=== PATIENT | male | born 1975 | race Caucasian/White ===

== ENCOUNTER 2019-09-24 09:59 | Inpatient (IN) | payer BC, OTHER ==
[2019-09-24] MEDS ORDERED: Morphine 4 MG/ML VIAL ONE ×2 (11:06→15:14)
[2019-09-24] MEDS ORDERED: Ondansetron PF 4 MG/2 ML Vial ONE (11:07)
[2019-09-24] MEDS ORDERED: Iopamidol-370 76% 500 ML 1 ML ONE (11:42)
[2019-09-24 13:54] LABS: ALT (SGPT) 31 U/L (8-55); AST (SGOT) 20 U/L (5-34); Alkaline Phosphatase 106 U/L (40-110); Anion Gap 14 mmol/L (10-20); BUN (Urea Nitrogen) 9 mg/dL (8.9-20.6); Bilirubin, Total 1.8 mg/dL (0.2-1.2); Calc. Creatinine Clearance 0 mL/min (70-130); Calcium 9.5 mg/dL (7.8-10.44); Carbon Dioxide 23 mmol/L (22-29); Chloride 102 mmol/L (98-107); Estimated GFR-MDRD Greater than 90; Glucose 71 mg/dL (70-105); Lipase 58 U/L (8-78); Sodium 136 mmol/L (136-145)
[2019-09-24] MEDS ORDERED: Azithromycin 500 MG in Sodium Chloride 0.9% 250 ML 250 ML IVPB SCH (15:00)
[2019-09-24 15:11] LABS: #Eosinphils 0.1 thou/uL (0.0-0.7); #Lymphocytes 1.3 thou/uL (1.20-3.40); #Monocytes 0.8 thou/uL (0.11-0.59); %Basophils 0.2 % (0.0-1.0); %Eosinophils 0.8 % (0.0-10.0); %Lymphocytes 10.4 % (21.0-51.0); %Monocytes 6.7 % (0.0-10.0); %Neutrophils 81.9 % (42.0-75.0); Hemoglobin 15.2 g/dL (14.0-18.0); Mean Corpuscular HGB CONC 35.7 g/dL (32.0-36.0); Mean Corpuscular Hemoglobin 35.9 pg (27.0-31.0); Platelet Count 163 thou/uL (130-400); RBC Distribution Width 12.4 % (11.5-14.5); Red Blood Cell (RBC) Count 4.22 mill/uL (4.70-6.10); White Blood Cell (WBC) Count 12.2 thou/uL (4.8-10.8)
--- NOTE | 2019-09-24 15:11 | CT ---
CT ABDOMEN AND PELVIS WITH IV CONTRAST: Date: 09/24/19 INDICATION: History of generalized abdominal pain with vomiting and history of pancreatitis. COMPARISON: None. FINDINGS: There is a rounded area of ground-glass nodular opacity seen within the posterolateral right lower lo be, image 9 of series 2. This nodular density measures 2.0 cm in size. There is fatty infiltration of the liver. The gallbladder is surgically absent. The pancreas demonstr ates scattered calcifications with main pancreatic ductal dilatation. There is inflammatory stranding surrounding the pancreas, particularly the proximal body and head. There is wall thickening involvin g the duodenum which is likely reactive. No drainable fluid collection is evident. Adrenal glands, sp jacquie, and kidneys are normal appearing. There are mild vascular calcifications involving the abdomina l aorta. Mild amount of retained stool is seen within the colon. There is mild wall thickening involving the b ladder. The small bowel is normal appearing. There is scattered degenerative and osteoarthritic barbour e. IMPRESSION: 1. Findings of acute on chronic pancreatitis. No drainable fluid collection or gross complication is evident. 2. Rounded opacity within the right lower lobe may reflect an area of focal pneumonia. Entities such as adenocarcinoma or inflammatory pneumonitis cannot be entirely excluded. Short-term follow-up in 6 -8 weeks is recommended to document resolution or stability. 3. Fatty liver. 4. Cholecystectomy. 5. Mild amount of retained stool within the colon. 6. Mild wall thickening of the bladder may be related to underdistention. Component of cystitis not excluded. Findings called to Dr. Elder at 1313 hours on 09/24/19. CODE CR. CODE LN. POS: OFF
[2019-09-24 15:12] LABS: Prothrombin Time 14.9 SEC (12.0-14.7)
[2019-09-24 15:13] LABS: INR-International Normal Ratio 1.2
[2019-09-24] MEDS ORDERED: cefTRIAXone\\ROCEPHIN 1 GM VIAL ONE (15:14)
--- NOTE | 2019-09-24 15:45 | RAD ---
CHEST ONE VIEW: 09/24/19 INDICATION: Vomiting with abdominal pain. COMPARISON: None. FINDINGS: The lungs are clear. Heart size is normal. There is mild thoracic scoliosis. There is mild tortuosity of the aorta. No pleural effusion or pneumothorax evident. No acute osseous abnormalities evident. IMPRESSION: No acute cardiopulmonary abnormality. POS: OFF
[2019-09-24] MEDS ORDERED: Fentanyl 100 MCG/2 ML VIAL SLOW IVP SCH (16:30)
[2019-09-24] MEDS ORDERED: Acetaminophen 325 MG TAB PO PRN (16:37)
[2019-09-24] MEDS ORDERED: Senokot S 8.6-50 MG TAB PO PRN (16:37)
[2019-09-24] MEDS ORDERED: Fentanyl 100 MCG/2 ML VIAL SLOW IVP PRN (16:44)
[2019-09-24] MEDS ORDERED: Sodium Chloride 0.9% 1,000 ML IV SCH (16:45)
[2019-09-24 17:46] LABS: Iron 28 ug/dL (65-175); Iron Binding Capacity, Total 233 mcg/dL (261-462)
--- NOTE | 2019-09-24 18:20 | HP ---
PRIMARY CARE PHYSICIAN: None. This is a [facility]. CHIEF COMPLAINT: Abdominal pain. HISTORY OF PRESENT ILLNESS: He reported to the emergency room today for abdominal pain, has been onset 2 weeks ago with worsening pain as well as nausea, vomiting, diarrhea, and bilateral flank pain. The patient reports some coffee-ground like vomit daily for about 2 weeks. Reports that diarrhea was initially red and then turned black after he took some Pepto-Bismol. He reports a history of pancreatitis, last episode 10 years ago. Reports that he saw Dr. Ledesma at that time. He also reports a history of increased stress and anxiety. Reports several episodes of chest pain, which he believes is likely a panic related. Reports a surgical history of a cholecystectomy, esophagus stretching, endoscopy, and an appendectomy. The patient had an abdomen and pelvis CT with findings; 1. Acute on chronic pancreatitis, no drainable fluid collection or gross complication. 2. Rounded opacity within the right lower lobe, which may reflect an area of focal pneumonia. Short-term followup in 6 to 8 weeks is recommended to document resolution. 3. Fatty liver. 4. Cholecystectomy. 5. Mild amount of retained stools in the colon. 6. Mild wall thickening of the bladder, component of cystitis is not excluded. LABORATORY DATA: Pertinent for hypokalemia with potassium of 3.0, total bilirubin 1.8. PT 14.9, INR 1.2. White blood cell count 12.2, red blood cell count 4.22, hemoglobin 15.2, hematocrit 42.5, and platelet count is 163. The patient was given a dose of Rocephin and azithromycin as well as morphine. The patient reports that he feels mildly improved with the pain, and the patient to be admitted to the medical unit for further management and GI consult. PAST MEDICAL HISTORY: Pertinent for pancreatitis and esophageal stricture. PAST SURGICAL HISTORY: Appendectomy, cholecystectomy, has had an EGD in the past with expansion of the stricture in the esophagus. FAMILY HISTORY: Pertinent for hypertension. SOCIAL HISTORY: Denies any alcohol or drug use. Denies smoking history. REVIEW OF SYSTEMS: The patient reports chills. Reports abdominal pain. Reports nausea, vomiting, and diarrhea. Reports that he noticed some coffee-ground type emesis intermittently. Also reports some intermittent melena. Reports being under more stress than normal. Denies any fever. Denies any shortness of breath, chest pain. All systems reviewed and are negative unless mentioned above or in HPI. PHYSICAL EXAMINATION: VITAL SIGNS: Blood pressure 173/95, pulse is 77, respirations are 16, temperature is 99.3, and O2 sats are 100% on room air. CONSTITUTIONAL: The patient appears in mild pain distress. He is alert and oriented to person, place, and time. HEENT: Head is atraumatic and normocephalic. Eyes, pupils are equally round and reactive to light. Extraocular muscles are intact. Eyelids are normal to inspection. ENT, mouth exam is normal. Mucous membranes are moist. NECK: Normal range of motion. Trachea is midline. RESPIRATORY/CHEST: Breath sounds are clear. Chest expansion is equal. CARDIOVASCULAR: Regular heart rate and rhythm. Heart sounds are normal. ABDOMEN: Tender to upper abdomen, epigastric, left and right upper quadrants. Bowel sounds are hyperactive. No distention is noted. BACK: Normal range of motion. No tenderness. EXTREMITIES: Upper extremity, normal range of motion. Sensation intact. Motor strength is normal. Radial pulses are normal. Lower extremity, normal inspection, normal range of motion. Sensation is intact. Pedal pulses are normal. No edema is noted. NEURO: The patient is oriented to person, place, and time. Speech is normal. SKIN: Visualized is warm, dry, and normal in color. PSYCH: The patient appears somewhat anxious. DIAGNOSTIC DATA: EKG in the emergency room shows beats per minute 77, normal sinus rhythm. Conduction is normal. PLAN AND ASSESSMENT: 1. Acute on chronic pancreatitis. Keep the patient on clear liquid diet. Dr. Christie for consultation. Pain medication, Zofran as needed for nausea. Reglan q.8. 2. History of melena and hematemesis. We have ordered an occult blood screen. Repeat CBC in a.m. Current hemoglobin and hematocrit are within normal limits. We have added Protonix q.12 hours. Iron studies have been ordered. 3. Hypokalemia. Add normal saline with 40 mEq of potassium at 100 mL per hour. We will recheck in the morning. 4. Possible pneumonia on CT scan. Azithromycin or Rocephin was started in the emergency room, we will continue this. The patient was told of the need for a followup his CT scan in the next 6 to 8 weeks. The patient reports he does not have a PCP. He was strongly encouraged to obtain one for followup after hospitalization and also for followup for chest CT. 5. Deep venous thrombosis prophylaxis with SCDs. Gastrointestinal prophylaxis with Protonix. 6. Case discussed with Dr. Villanueva, who agrees with plan. 7. Hospital course is dependent on clinical findings. Job ID: [id number]
[2019-09-24 18:27] LABS: Troponin I Less than 0.010 ng/mL (< 0.028)
[2019-09-24] MEDS ORDERED: Lorazepam 2 MG/ML VIAL SLOW IVP SCH (20:08)
[2019-09-24] MEDS: Morphine 4 MG/ML VIAL SLOW IVP PRN (20:35)
[2019-09-24] MEDS: Pantoprazole 40 MG VIAL IVP SCH (20:42)
[2019-09-24] MEDS: NS 0.9% w/ 40 MEQ KCL 1,000 ML IV SCH (20:45)
[2019-09-24] MEDS ORDERED: Famotidine/PF 20 mg/2ml Vial SLOW IVP SCH (21:00)
[2019-09-24 21:07] LABS: Lactic Acid 1.6 mmol/L (0.5-2.2)
[2019-09-24] MEDS: Metoclopramide HCl 10 MG/2 ML VIAL IVP SCH (22:44)
[2019-09-25] MEDS: Morphine 4 MG/ML VIAL SLOW IVP PRN ×5 (00:27→20:51)
[2019-09-25 02:43] VITALS: BMI 24.5
[2019-09-25 04:49] LABS: Bacteria/HPF None Seen HPF (None Seen); Bilirubin Negative (Negative); Blood, Urine Negative (Negative); Clarity Clear (Clear); Glucose, Urine (Dipstick) Normal (Negative); Leukocyte Negative Leu/uL (Negative); Nitrite Negative (Negative); Protein, Urine (Dipstick) Negative (Neg-Trace); RBC/HPF 0-3 HPF (0-3); Squamous Epithelial None Seen HPF (0-3); Urobilinogen Normal mg/dL (Less than 2); WBC/HPF 0-3 HPF (0-3)
[2019-09-25 04:59] LABS: Amphetamine Not Detected (NotDetected); Barbiturates Screen Not Detected (NotDetected); Benzodiazepine Screen Not Detected (NotDetected); Cocaine Metabolite Screen Not Detected (NotDetected); Medtox Control Line Valid? VALID (VALID); Medtox Reader # READER 4; Methadone Not Detected (NotDetected); Methamphetamine Not Detected (NotDetected); Opiate Screen Detected (NotDetected); Oxycodone Screen Not Detected (NotDetected); Phencyclidine (PCP) Not Detected (NotDetected); THC/Cannabinoid Screen Not Detected (NotDetected); Tricyclic Screen Not Detected (NotDetected)
[2019-09-25 05:00] LABS: Urine Culture Reflex No No
[2019-09-25] MEDS: Metoclopramide HCl 10 MG/2 ML VIAL IVP SCH ×3 (06:07→23:03)
[2019-09-25 06:15] LABS: Hemoglobin 14.1 g/dL (14.0-18.0); Mean Corpuscular HGB CONC 33.1 g/dL (32.0-36.0); Mean Corpuscular Hemoglobin 35.7 pg (27.0-31.0); Mean Platelet Volume 8.9 fL (7.4-10.4); Platelet Count 137 thou/uL (130-400); RBC Distribution Width 12.4 % (11.5-14.5); Red Blood Cell (RBC) Count 3.95 mill/uL (4.70-6.10); White Blood Cell (WBC) Count 10.3 thou/uL (4.8-10.8)
[2019-09-25 06:30] LABS: ALT (SGPT) 42 U/L (8-55); AST (SGOT) 67 U/L (5-34); Albumin 3.2 g/dL (3.5-5.0); Alkaline Phosphatase 142 U/L (40-110); Anion Gap 16 mmol/L (10-20); BUN (Urea Nitrogen) 9 mg/dL (8.9-20.6); Bilirubin, Total 1.2 mg/dL (0.2-1.2); Calc. Creatinine Clearance 138 mL/min (70-130); Calcium 8.3 mg/dL (7.8-10.44); Carbon Dioxide 16 mmol/L (22-29); Chloride 108 mmol/L (98-107); Estimated GFR-MDRD Greater than 90; Globulin 2.9 g/dL (2.4-3.5); Potassium 3.6 mmol/L (3.5-5.1); Protein, Total 6.1 g/dL (6.0-8.3); Sodium 136 mmol/L (136-145)
[2019-09-25 06:38] LABS: #Eosinphils 0.1 thou/uL (0.0-0.7); #Lymphocytes 1.2 thou/uL (1.20-3.40); #Monocytes 0.9 thou/uL (0.11-0.59); %Basophils 0.3 % (0.0-1.0); %Eosinophils 1.2 % (0.0-10.0); %Lymphocytes 11.9 % (21.0-51.0); %Monocytes 8.6 % (0.0-10.0); %Neutrophils 78.1 % (42.0-75.0); MDiff Complete? YES; Macrocytosis SLIGHT = 6-15 cells (100X) (0-5/hpf); Platelet Morphology Comment Appears Adequate
[2019-09-25 06:43] LABS: Glucose 52 mg/dL (70-105)
[2019-09-25] MEDS: Pantoprazole 40 MG VIAL IVP SCH ×2 (09:32→20:52)
[2019-09-25] MEDS: NS 0.9% w/ 40 MEQ KCL 1,000 ML IV SCH ×2 (09:35→13:21)
[2019-09-25] MEDS ORDERED: FLU VACC QS2019-20(6MOS UP)/PF 60 MCG/0.5 ML SYRINGE IM ONE (09:45)
--- NOTE | 2019-09-25 12:27 | CON ---
DATE OF CONSULTATION: 09/25/2019 CHIEF COMPLAINT: Abdominal pain. HISTORY OF PRESENT ILLNESS: Mr. Smith is a 44-year-old man, who presented to the emergency room with abdominal pain. He started with a burning to cramping epigastric pain about 2 weeks ago. He gradually developed nausea and vomiting and threw up once or twice a day since then. He would intermittently vomit red blood and then coffee-ground appearing emesis. He also has had loose stools with up to 5 stools per day, at times it has been bloody as well. He has had no chest pain, but has had some shortness of breath with exertion. He is also just felt generally fatigued. He has had progressive solid food dysphagia around once per week and usually can drink water and push the bolus down. He underwent EGD with dilation of esophageal stricture back in 2008. He has not been taking a proton pump inhibitor. He has not been on any medications at baseline, but over the last few days he started taking some ibuprofen for the abdominal pain around 3 tablets at a time a few times per day. He has a history of chronic pancreatitis. However, the pain that he has now feels different than the prior pancreatitis pain. The source for the pancreatitis was not identified, but was potentially thought to be related to sphincter of Oddi dysfunction and he was treated with stent to the pancreatic duct and possibly a sphincterotomy or balloon to the sphincter. He did take Pepto-Bismol and had some black stools after that. PAST MEDICAL HISTORY: Recurrent pancreatitis with his last episode having been in 2008. He had had a pancreatic stent in the past prior to that. PAST SURGICAL HISTORY: 1. Cholecystectomy. 2. Appendectomy. FAMILY HISTORY: Negative for GI malignancy. SOCIAL HISTORY: He drinks a 6-pack of beer a couple times per week. He smokes a couple times per year. No drugs. ALLERGIES: NO KNOWN DRUG ALLERGIES. MEDICATIONS: Outpatient medications are none other than the medicines he was taken over the last few days as stated in the history of present illness. Currently in the hospital, he is on; 1. Azithromycin. 2. Ceftriaxone. 3. Morphine. REVIEW OF SYSTEMS: Negative x10 systems reviewed except as stated in history of present illness. PHYSICAL EXAMINATION: VITAL SIGNS: Temperature 98.0, pulse 75, blood pressure 157/99. GENERAL: He is in no acute distress. Alert and oriented x3. HEENT: Eyes have no scleral icterus. Oropharynx is clear without lesions. No cervical or supraclavicular lymphadenopathy. LUNGS: Clear to auscultation bilaterally. HEART: Regular rate and rhythm without murmur. ABDOMEN: Soft. He is tender in the epigastric region without guarding. Bowel sounds are present. EXTREMITIES: No lower extremity edema. NEUROLOGIC: Cranial nerves are grossly intact. LABORATORY DATA: White blood cell count is 10.3, down from 12.2 yesterday; hemoglobin is 14.1; and platelets 137. INR 1.2. Creatinine 0.68. Iron 28, TIBC 233, and ferritin 619. Bilirubin 1.2, AST 67, ALT 42, alkaline phosphatase 142, albumin 3.2, and lipase 58. He had a CT scan of the abdomen and pelvis, that did show calcifications within the pancreas with dilation of the main pancreatic duct. There are inflammatory changes surrounding the pancreas. There is reactive wall thickening of the duodenum. Retained stool is seen in the colon with thickening of the bladder wall. Fatty liver was seen. IMPRESSION: 1. Acute flare of chronic pancreatitis. He currently admits to drinking a couple of 6 packs per week. His parents are in the room. We will question them further on this. He does have changes of chronic pancreatitis noted as well with calcifications in the pancreas. I am concerned that alcohol could be playing a little bit more of a significant role here. 2. Esophageal dysphagia with a history of esophageal stricture, last dilated in 2008. 3. Hematemesis and change in bowel habits with possible blood in the stool as well. I will plan for esophagogastroduodenoscopy today to rule out peptic ulcer. This will also be to evaluate the area of thickening in the duodenum, and if his esophagus is not too inflamed, hopefully we can dilate the esophageal stricture at the same time. RECOMMENDATIONS: 1. Complete alcohol abstinence. 2. EGD today. 3. IV fluids. 4. We will advance his diet if he tolerates. 5. He is on antibiotics for findings on imaging with a question of a focal pneumonia in the right lower lobe of the lung with rounded opacity in that area. Job ID: [id number]
[2019-09-25] MEDS ORDERED: Fentanyl 100 MCG/2 ML VIAL ONE (12:42)
[2019-09-25] MEDS ORDERED: Ketorolac Tromethamine 30 MG/ML VIAL IVP PRN (13:17)
[2019-09-25] MEDS ORDERED: Promethazine HCl 25 MG/ML VIAL SLOW IVP PRN (13:17)
[2019-09-25] MEDS ORDERED: Ondansetron HCl/PF 4 MG/2 ML Vial IVP PRN (13:17)
[2019-09-25] MEDS ORDERED: Promethazine HCl 25 MG/ML VIAL IM PRN (13:17)
[2019-09-25] MEDS ORDERED: Labetalol HCl 100 MG/20 ML VIAL SLOW IVP PRN (13:32)
[2019-09-25] MEDS ORDERED: Labetalol HCl 100 MG/20 ML VIAL ONE (13:33)
[2019-09-25] MEDS ORDERED: hydrALAZINE 20 MG/ML VIAL SLOW IVP SCH (13:45)
[2019-09-25] MEDS ORDERED: hydrALAZINE 20 MG/ML VIAL ONE (13:51)
[2019-09-25] MEDS ORDERED: cefTRIAXone\\ROCEPHIN 1 GM in Sodium Chloride 0.9% 100 ML IVPB SCH (14:00)
[2019-09-25] MEDS ORDERED: Lidocaine 1% PF 5 ML VIAL ONE (14:36)
[2019-09-25] MEDS ORDERED: PROPOFOL 200 MG/20 ML VIAL ONE (14:36)
[2019-09-25] MEDS ORDERED: Azithromycin 500 MG in Sodium Chloride 0.9% 250 ML 250 ML IVPB SCH (15:00)
--- NOTE | 2019-09-25 17:17 | PDOC.HOSPP ---
- Subjective Encounter Date: 09/25/19 Encounter Time: 11:00 Subjective: still has off and on abd pain relieved by morphine no nausea, is tolerating liq diet no fever, cough or expectoration or sob - Objective Vital Signs & Weight: Vital Signs (12 hours) Temp Pulse Resp BP Pulse Ox 09/25/19 15:58 98.1 F 75 16 153/91 H 98 09/25/19 14:43 85 16 146/88 H 09/25/19 14:24 75 09/25/19 14:20 97.5 F L 77 20 164/107 H 99 09/25/19 07:53 98.0 F 75 18 157/99 H 98 Weight Admit Weight 156 lb 11.2 oz Weight 156 lb 11.2 oz I&O: 09/24/19 09/25/19 09/26/19 06:59 06:59 06:59 Intake Total 1500 Balance 1500 Result Diagrams: 09/25/19 05:30 09/25/19 05:30 Hospitalist ROS - Medication Medications: Active Medications Generic Name Dose Route Start Last Admin Trade Name Freq PRN Reason Stop Dose Admin Potassium Chloride/Sodium Chloride 1,000 mls @ 100 mls/hr 09/24/19 17:00 03/09 13:21 Ns 0.9% W/ 40 Meq Kcl IV Not Given .Q10H JACKY Metoclopramide HCl 10 mg 09/24/19 22:00 09/25/19 14:26 Reglan IVP 10 mg Q8HR JACKY Administration Morphine Sulfate 4 mg 09/24/19 20:07 09/25/19 15:52 Morphine SLOW IVP 4 mg Q4H PRN Administration Moderate to Severe Pain (6-10) Pantoprazole Sodium 40 mg 09/24/19 21:00 09/25/19 09:32 Protonix IVP 40 mg Q12HR JACKY Administration - Exam General Appearance: NAD, awake alert Eye: PERRL, anicteric sclera ENT: no oropharyngeal lesions, moist mucosa Neck: supple, no JVD Heart: RRR, no murmur Respiratory: no wheezes, no rales Gastrointestinal: soft, non-distended, normal bowel sounds, no guarding, no rigidity Extremities: no cyanosis, no edema Neurological: cranial nerve grossly intact, no focal deficits Psychiatric: normal affect, A&O x 3 Hosp A/P (1) Acute on chronic pancreatitis Code(s): K85.90 - ACUTE PANCREATITIS WITHOUT NECROSIS OR INFECTION, UNSP; K86.1 - OTHER CHRONIC PANCREATITIS Status: Acute (2) Nausea & vomiting Code(s): R11.2 - NAUSEA WITH VOMITING, UNSPECIFIED Status: Resolved (3) Hypokalemia Code(s): E87.6 - HYPOKALEMIA Status: Acute (4) History of esophageal stricture Code(s): Z87.19 - PERSONAL HISTORY OF OTHER DISEASES OF THE DIGESTIVE SYSTEM Status: Chronic - Plan for egd today hemostable triglyceride levels admits to drinking on weekends while golfing (4-6 beers) continue iv fluids, protonix, reglan prn dc antibiotics, clinically has no c/o cough/fever/sob to ambulate in hallway as tolerated dc plan per GI adv
--- NOTE | 2019-09-25 19:59 | OP ---
DATE OF PROCEDURE: 09/25/2019 PROCEDURE: Esophagogastroduodenoscopy with biopsy and esophageal balloon dilation. PREOPERATIVE DIAGNOSES: Dysphagia, epigastric pain, hematemesis, and acute on chronic pancreatitis. DESCRIPTION OF PROCEDURE: Informed consent was obtained from the patient. He was sedated with total intravenous anesthesia. A bite block was placed and the endoscope was advanced easily to the second portion of the duodenum and retroflexion was performed in the stomach. The esophagus had a mild stricture in the distal esophagus just above the GE junction. This was dilated with a balloon dilator to 18 mm. There is an appropriate mild tear at the dilation site. The stomach had mild nonerosive erythematous gastritis in the antrum. Biopsies were obtained to rule out Helicobacter pylori. Retroflexed views in the stomach were normal. The pylorus was normal. The first portion of the duodenum was normal. There was mild congestion and erythema of the proximal second portion of the duodenum at the C loop. The more distal second portion of the duodenum was normal. IMPRESSION: 1. Mild distal esophageal stricture dilated to 18 mm with a balloon dilator. 2. Nonerosive gastritis, biopsied to rule out Helicobacter pylori. 3. Mild erythema and congestion at the proximal second portion of the duodenum, likely secondary to acute pancreatitis. RECOMMENDATIONS: 1. Proton pump inhibitor daily. 2. IV fluids. 3. Advance diet as he tolerates. 4. Complete alcohol cessation. Job ID: [id number]
[2019-09-25] MEDS: Ondansetron PF 4 MG/2 ML Vial IVP PRN (20:50)
[2019-09-26] MEDS: NS 0.9% w/ 40 MEQ KCL 1,000 ML IV SCH ×3 (00:02→18:13)
[2019-09-26] MEDS: Morphine 4 MG/ML VIAL SLOW IVP PRN ×5 (01:01→21:14)
[2019-09-26] MEDS: Metoclopramide HCl 10 MG/2 ML VIAL IVP SCH ×3 (05:00→21:13)
[2019-09-26 06:27] LABS: ALT (SGPT) 35 U/L (8-55); AST (SGOT) 34 U/L (5-34); Albumin 3.2 g/dL (3.5-5.0); Alkaline Phosphatase 137 U/L (40-110); Anion Gap 12 mmol/L (10-20); BUN (Urea Nitrogen) 4 mg/dL (8.9-20.6); Bilirubin, Total 1.1 mg/dL (0.2-1.2); Calc. Creatinine Clearance 149 mL/min (70-130); Calcium 8.4 mg/dL (7.8-10.44); Carbon Dioxide 22 mmol/L (22-29); Cardiac Risk 2.1 (Less than 4.5); Chloride 106 mmol/L (98-107); Cholesterol 82 mg/dl (< 200 Desired); Estimated GFR-MDRD Greater than 90; Globulin 2.7 g/dL (2.4-3.5); Glucose 73 mg/dL (70-105); HDL Cholesterol 39 mg/dL (>60 Neg Risk); LDL Cholesterol, Calculated 34 mg/dL; Potassium 3.7 mmol/L (3.5-5.1); Protein, Total 5.9 g/dL (6.0-8.3); Sodium 136 mmol/L (136-145); Triglycerides 47 mg/dL (Less than 150)
[2019-09-26] MEDS: Ondansetron PF 4 MG/2 ML Vial IVP PRN ×3 (09:29→21:14)
[2019-09-26] MEDS: Pantoprazole 40 MG VIAL IVP SCH ×2 (09:29→21:13)
--- NOTE | 2019-09-26 13:23 | PDOC.HOSPP ---
- Subjective Encounter Date: 09/26/19 Encounter Time: 12:35 Subjective: +Abdominal pain.. - Objective Vital Signs & Weight: Vital Signs (12 hours) Temp Pulse Resp BP Pulse Ox 09/26/19 12:00 98.4 F 18 156/85 H 98 09/26/19 08:00 98.3 F 70 18 150/79 H 97 Weight Admit Weight 156 lb 11.2 oz Weight 156 lb 11.2 oz I&O: 09/25/19 09/26/19 09/27/19 06:59 06:59 06:59 Intake Total 3920 Output Total 350 Balance 3570 Result Diagrams: 09/25/19 05:30 09/26/19 05:42 Hospitalist ROS - Medication Medications: Active Medications Generic Name Dose Route Start Last Admin Trade Name Freq PRN Reason Stop Dose Admin Potassium Chloride/Sodium Chloride 1,000 mls @ 100 mls/hr 09/24/19 17:00 04/09 09:28 Ns 0.9% W/ 40 Meq Kcl IV 1,000 mls .Q10H JACKY Administration Metoclopramide HCl 10 mg 09/24/19 22:00 09/26/19 05:00 Reglan IVP 10 mg Q8HR JACKY Administration Morphine Sulfate 4 mg 09/24/19 20:07 09/26/19 09:29 Morphine SLOW IVP 4 mg Q4H PRN Administration Moderate to Severe Pain (6-10) Ondansetron HCl 4 mg 09/24/19 16:37 09/26/19 09:29 Zofran IVP 4 mg Q6H PRN Administration Nausea/Vomiting Pantoprazole Sodium 40 mg 09/24/19 21:00 09/26/19 09:29 Protonix IVP 40 mg Q12HR JACKY Administration - Exam General Appearance: awake alert, ill appearing Neck: no JVD Heart: RRR Respiratory: CTAB Gastrointestinal: soft, tender to palpation Extremities: no edema Neurological: no weakness Psychiatric: A&O x 3 Hosp A/P (1) Acute on chronic pancreatitis Code(s): K85.90 - ACUTE PANCREATITIS WITHOUT NECROSIS OR INFECTION, UNSP; K86.1 - OTHER CHRONIC PANCREATITIS Status: Acute (2) Hypokalemia Code(s): E87.6 - HYPOKALEMIA Status: Acute Plan: resolved (3) History of esophageal stricture Code(s): Z87.19 - PERSONAL HISTORY OF OTHER DISEASES OF THE DIGESTIVE SYSTEM Status: Chronic (4) Nausea & vomiting Code(s): R11.2 - NAUSEA WITH VOMITING, UNSPECIFIED Status: Resolved Plan: Improving.. - Plan Continue current therapy.. s/p EGD which shows gastritis, duodenitis.. On PPI.
--- NOTE | 2019-09-27 00:50 | PRG ---
DATE OF SERVICE: 09/26/2019 SUBJECTIVE: Mr. Smith is feeling better. However, he is still having some abdominal discomfort after taking clear liquids. OBJECTIVE: VITAL SIGNS: Temperature is 98.6, pulse 71, blood pressure 195/95. GENERAL: He is no acute distress. Awake and alert. LUNGS: Clear to auscultation bilaterally. HEART: Regular rate and rhythm without murmur. ABDOMEN: Soft. Minimal tenderness without guarding. Bowel sounds are present. EXTREMITIES: No lower extremity edema. IMPRESSION: 1. Acute flare of chronic pancreatitis. I think that he has been drinking heavily prior to admission. I again encouraged him to stop all alcohol intake at this point. 2. Question of pneumonia, lung lesion. He is on antibiotics for that. 3. Gastritis noted by endoscopy. Biopsies were negative for Helicobacter pylori. RECOMMENDATIONS: 1. Advance to a fat restricted diet. 2. He should be ready to discharge home tomorrow. 3. Complete alcohol cessation. Job ID: [id number]
[2019-09-27] MEDS: Morphine 4 MG/ML VIAL SLOW IVP PRN ×3 (01:28→10:43)
[2019-09-27] MEDS: Ondansetron PF 4 MG/2 ML Vial IVP PRN ×2 (03:02→10:41)
[2019-09-27] MEDS ORDERED: hydrALAZINE 20 MG/ML VIAL SLOW IVP PRN (04:56)
[2019-09-27] MEDS: NS 0.9% w/ 40 MEQ KCL 1,000 ML IV SCH ×2 (05:03→15:03)
[2019-09-27] MEDS: Metoclopramide HCl 10 MG/2 ML VIAL IVP SCH ×2 (05:03→15:03)
[2019-09-27] MEDS: Pantoprazole 40 MG VIAL IVP SCH (08:56)
[2019-09-27 11:51] VITALS: BP 134/81; TEMP 97.7
--- NOTE | 2019-09-28 04:02 | DIS ---
DATE OF ADMISSION: 09/24/2019 DATE OF DISCHARGE: 09/27/2019 ADMITTING DIAGNOSES: 1. Pneumonia. 2. Hypokalemia. 3. Fgjsj-ew-hzndfmz pancreatitis. 4. History of melena and hematemesis. DISCHARGE DIAGNOSES: 1. Pneumonia. 2. Hypokalemia. 3. [id number] pancreatitis. 4. History of melena and hematemesis. COREMAKER PIPE: GI. PROCEDURES: Esophagogastroduodenoscopy with biopsy and esophageal balloon dilatation. Abdomen and pelvis CT, chest x-ray. COURSE OF HOSPITALIZATION: This patient responded well to management. He is clinically stable at this time, being discharged home. DISCHARGE MEDICATION: Please see discharge medication reconciliation sheet. The patient is to follow up with Gastroenterology and also with his PCP as outpatient. PHYSICAL EXAMINATION: GENERAL: Today, the patient is alert, oriented, in no distress. His vital signs show a temperature of 97.7, pulse rate 64, respiratory rate 18, blood pressure 134/81. HEAD AND NECK: Normal. HEART: He has a regular S1, S2. LUNGS: Clear. ABDOMEN: Benign. EXTREMITIES: Limbs show no edema. NEUROLOGIC: He moves all extremities. As mentioned earlier, the is to follow up with GI and also with his PCP. DISCHARGE TIME: 32 minutes. Job ID: [id number] [id number]
== END 2019-09-27 15:15 | disposition home or self-care (01) | DRG 438 ==
LOC: ERS 09:59 → T4-B 20:22
PROVIDERS: ADMIT Family Medicine; ATTEND Family Medicine
PROC: 0DB68ZX Excision of Stomach, Via Natural or Artificial Opening Endoscopic, Diagnostic (ICD-10-PCS; principal; 2019-09-25)
PROC: 0D738ZZ Dilation of Lower Esophagus, Via Natural or Artificial Opening Endoscopic (ICD-10-PCS; 2019-09-25)
DX: K85.90 Acute pancreatitis without necrosis or infection, unspecified (principal); J18.9 Pneumonia, unspecified organism; K86.1 Other chronic pancreatitis; K76.0 Fatty (change of) liver, not elsewhere classified; E87.6 Hypokalemia; K22.2 Esophageal obstruction; K29.70 Gastritis, unspecified, without bleeding; K29.80 Duodenitis without bleeding; F10.10 Alcohol abuse, uncomplicated; Z90.49 Acquired absence of other specified parts of digestive tract; Z71.41 Alcohol abuse counseling and surveillance of alcoholic
CPT/HCPCS: 36415; 71045; 74177; 80053; 80061; 80306; 81001; 82728; 83540; 83550; 83605; 83690; 84478; 84484; 85025; 85610; 88305; 88312; 93005; 96361; 96374; 96375; C9113; J0360; J0456; J0696; J2001; J2060; J2270; J2405; J2704; J2765; J3010; J3480; J3490; J7050; Q9967